=== PATIENT | female | born 1980 | race Two or more races ===

== ENCOUNTER 2017-03-26 08:57 | Emergency (ER) | payer BC ==
[2017-03-26] MEDS ORDERED: Carisoprodol TAB* 350 MG PO ONE (09:18)
[2017-03-26] MEDS ORDERED: Ibuprofen TAB* 400 MG PO ONE (09:19)
--- NOTE | 2017-03-26 09:26 | ED ---
Lower Extremity - History of Current Complaint Chief Complaint: José Antonio Stated Complaint: RIGHT FOOT INJURY Time Seen by Provider: 03/26/17 09:06 Hx Obtained From: Patient - sudden, nontraumatic pain outside area of R foot. She was sitting with R leg crossed over L leg when sudden sharp/spasm like pain started in outside of R foot. NOw cannot move 3rd-5th toes. 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 sensation remains intact. Negative: Swelling, Redness, Bruising Aggravating Factor(s): Standing, Movement Alleviating Factor(s): Rest, Elevation Able to Bear Weight: No - using crutches - Risk Factors Gout Risk Factors: Negative - Allergies/Home Medications Allergies/Adverse Reactions: Allergies Allergy/AdvReac Type Severity Reaction Status Date / Time SEAFOOD Allergy Rash And Uncoded 07/05/16 14:50 Itching PMH/Surg Hx/FS Hx/Imm Hx Previously Healthy: Yes Endocrine/Hematology History: Denies: Hx Diabetes - BORDERLINE Cardiovascular History: Reports: Hx Hypertension Denies: Hx Pacemaker/ICD Respiratory History: Denies: Hx Chronic Obstructive Pulmonary Disease (COPD) History: Denies: Hx Renal Disease Musculoskeletal History: Reports: Hx Back Problems - lower back "arthritis" Sensory History: Denies: Hx Hearing Aid Neurological History: Denies: Hx Peripheral Neuropathy, Hx Spinal Cord Injury Psychiatric History: Denies: Hx Panic Disorder - Surgical History Surgery Procedure, Year, and Place: RHINOPLASTY Infectious Disease History: No Infectious Disease History: Denies: Traveled Outside the [place] in Last 30 Days - Social History Occupation: Employed Full-time Lives: With Family Alcohol Use: None Substance Use Type: Reports: None Smoking Status (MU): Never Smoked Tobacco Review of Systems Constitutional: Negative Negative: Fever, Chills Cardiovascular: Negative Negative: Chest Pain Respiratory: Negative Negative: Shortness Of Breath, Cough Gastrointestinal: Negative Musculoskeletal: Other - see note Skin: Negative Negative: Rash, Bruising Neurological: Negative Negative: Headache Psychological: Normal All Other Systems Reviewed And Are Negative: Yes Physical Exam Triage Information Reviewed: Yes Vital Signs On Initial Exam: Initial Vitals Temp Pulse Resp BP Pulse Ox 97.5 F 101 20 139/87 100 03/26/17 08:59 03/26/17 08:59 03/26/17 08:59 03/26/17 08:59 03/26/17 08:59 Vital Signs Reviewed: Yes Appearance: Positive: Well-Appearing, No Pain Distress, Well-Nourished Skin: Positive: Warm, Skin Color Reflects Adequate Perfusion, Dry Cardiovascular: Positive: Normal, RRR, Pulses are Symmetrical in both Upper and Lower Extremities Musculoskeletal: Positive: Limited @ - R 3rd-5th toes, able to move but c/o "spasm" like pain, Other - point tenderness Lateral R foot. Negative: Ja Sign Left, Ja Sign Right Neurological: Positive: Normal, Sensory/Motor Intact, Alert, Oriented to Person Place, Time Psychiatric: Positive: Normal Diagnostics - Vital Signs Vital Signs Temp Pulse Resp BP Pulse Ox 03/26/17 09:06 97.5 F 101 18 139/87 98 03/26/17 08:59 97.5 F 101 20 139/87 100 - Laboratory Lab Statement: Any lab studies that have been ordered have been reviewed, and results considered in the medical decision making process. Lower Extremity Course/Dx - Diagnoses Differential Diagnosis/HQI/PQRI: Positive: Contusion, Fracture (Closed), Sprain , Strain, Tendonitis Provider Diagnoses: Muscle cramping Discharge - Discharge Plan Condition: Stable Disposition: HOME Meds/Orders/Equipment: Physical Therapy Location: Determined By Patient Forms: *Gen. Provider Communication, *Work Release Referrals: Alfred Osullivan MD [Primary Care Provider] - Additional Instructions: Massage your feet twice a day and drink plenty of fluids follow-up with physical therapy wear support socks The Causes of foot/toe cramps Toe cramps have various triggers, but overuse, dehydration, and mineral deficiencies (particularly, potassium, calcium, and magnesium) are some of the most common culprits, according to [facility]. When you exercise, you sweat out the minerals your muscles need. And that deficiency causes muscle contractions or spasms, which we call cramps
[2017-03-26 10:39] VITALS: BP 122/76
== END 2017-03-26 10:38 | disposition home or self-care (01) ==
LOC: ED 08:57
DX: R25.2 Cramp and spasm (principal)
CPT/HCPCS: 99282; A9270-GY

== ENCOUNTER 2017-07-31 21:52 | Emergency (ER) | payer SELFPAY ==
[2017-07-31] MEDS ORDERED: Lidocaine 1%* 5 ML VIAL ONE (22:48)
--- NOTE | 2017-07-31 22:49 | ED ---
Laceration/Wound HPI - HPI Summary HPI Summary: 37F presents with left hand laceration. She cut it on a knife. she denies any numbness or tingling. She states that everytime she moves her hand it starts to bleed again. She cut it on a knife as she was not wear her gloves. Her tetanus was last year. She works at [employer]. She is right handed - History of Current Complaint Stated Complaint: LT HAND LAC Time Seen by Provider: 07/31/17 22:08 Pain Intensity: 8 - Allergy/Home Medications Allergies/Adverse Reactions: Allergies Allergy/AdvReac Type Severity Reaction Status Date / Time SEAFOOD Allergy Rash And Uncoded 07/05/16 14:50 Itching PMH/Surg Hx/FS Hx/Imm Hx Endocrine/Hematology History: Denies: Hx Diabetes - BORDERLINE Cardiovascular History: Reports: Hx Hypertension Denies: Hx Pacemaker/ICD Respiratory History: Denies: Hx Chronic Obstructive Pulmonary Disease (COPD) History: Denies: Hx Renal Disease Musculoskeletal History: Reports: Hx Back Problems - lower back "arthritis" Sensory History: Denies: Hx Hearing Aid Neurological History: Denies: Hx Peripheral Neuropathy, Hx Spinal Cord Injury Psychiatric History: Denies: Hx Panic Disorder - Surgical History Surgery Procedure, Year, and Place: RHINOPLASTY Infectious Disease History: No Infectious Disease History: Denies: Traveled Outside the [place] in Last 30 Days - Family History Known Family History: Positive: Hypertension - Social History Alcohol Use: None Substance Use Type: Reports: None Smoking Status (MU): Never Smoked Tobacco Review of Systems Negative: Fever Negative: Chest Pain Negative: Shortness Of Breath Positive: Other - laceration left hand All Other Systems Reviewed And Are Negative: Yes Physical Exam Triage Information Reviewed: Yes Vital Signs On Initial Exam: Initial Vitals Temp Pulse Resp BP Pulse Ox 97.1 F 75 16 112/70 99 07/31/17 21:56 07/31/17 21:56 07/31/17 21:56 07/31/17 21:56 07/31/17 21:56 Vital Signs Reviewed: Yes Appearance: Positive: Well-Appearing Skin: Positive: Warm, Dry, Other - 3cm superficial laceration on palmar aspect near thumb of left hand Head/Face: Positive: Normal Head/Face Inspection Eyes: Positive: Normal, Conjunctiva Clear Respiratory/Lung Sounds: Positive: Clear to Auscultation, Breath Sounds Present Cardiovascular: Positive: Normal, RRR Musculoskeletal: Positive: Strength/ROM Intact - left hand, Other - good pulses , capillary refill<2 secs Psychiatric: Positive: Normal Procedures - Laceration/Wound Repair 1 Location: Other - left palm Description: Linear Anesthesia: Local, 1.0% Length, Depth and Shape: 3cm superificial Irrigated w/ Saline (ccs): 1,000 Laceration/Wound Explored: clean, no foreign body removed Closure: Skin Adhesive, Single Layer Suture Type: Prolene - 4-0 Number of Sutures: 2 Layer Closure?: No Sterile Dressing Applied?: Yes - neosporin, telfa and then deuce wrap Diagnostics - Vital Signs Vital Signs Temp Pulse Resp BP Pulse Ox 07/31/17 21:56 97.1 F 75 16 112/70 99 - Laboratory Lab Statement: Any lab studies that have been ordered have been reviewed, and results considered in the medical decision making process. Laceration Repair Course/Dx - Course Course Of Treatment: 37F presents with left hand laceration. She cut it on a knife. she denies any numbness or tingling. She states that everytime she moves her hand it starts to bleed again. She cut it on a knife as she was not wear her gloves. Her tetanus was last year. placed 2 sutures in 2cm laceration and glue on the abrasion end of the laceration. patient understands and agrees with plan. - Differential Dx Differental Diagnoses: Abrasion, Avulsion, Laceration - Clinical Impression Provider Diagnoses: Laceration of left palm Discharge - Discharge Plan Condition: Good Disposition: HOME Patient Education Materials: Care For Your Stitches (ED) Forms: *Work Release Referrals: Alfred Osullivan MD [Primary Care Provider] - Additional Instructions: Take Tylenol or ibuprofen for pain Keep area clean and dry for 48 hours Return to ED or primary in 10-14 days to have sutures removed Return to ED if develop signs of infection such as fever, spreading redness, or pus.
[2017-07-31 23:58] VITALS: BP 123/89
== END 2017-07-31 23:58 | disposition home or self-care (01) ==
LOC: ED 21:52
DX: S61.412A Laceration without foreign body of left hand, initial encounter (principal); W26.0XXA Contact with knife, initial encounter; Y93.9 Activity, unspecified; Y92.9 Unspecified place or not applicable; Y99.9 Unspecified external cause status
CPT/HCPCS: 12002; 99282

== ENCOUNTER → 2018-12-25 16:59 | Emergency (ER) | payer BC, OTHER ==
[~2018-12-25 16:59] MED LIST: Acetaminophen TAB* 325 MG PO ONE; Cyclobenzaprine TAB* 10 MG PO ONE; traMADol TAB* 50 MG PO ONE
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
[2018-12-25 21:32] VITALS: BP 148/101
== END | disposition home or self-care (01) ==
LOC: ED 16:59
DX: Z04.1 Encounter for examination and observation following transport accident (principal); M54.9 Dorsalgia, unspecified; M54.2 Cervicalgia; R51 Headache; H53.8 Other visual disturbances
CPT/HCPCS: 70450; 71111; 72125; 99282; A9270-GY